=== PATIENT | female | born 1955 | race Caucasian/White ===

== ENCOUNTER 2017-02-23 20:12 | Observation (INO) | payer MEDICARE, OTHER ==
[2017-02-23] MEDS ORDERED: SODIUM CHLORIDE 0.9% 1000ML 1,000 ML IV ONE ×2 (20:30→22:00)
[2017-02-23 20:59] LABS: ALBUMIN 2.8 gm/dl (3.4-5.0); CALCIUM 7.9 mg/dl (8.5-10.1); POTASSIUM 3.3 mMol/L (3.5-5.1)
[2017-02-23 21:02] LABS: BASOPHILS % (AUTO) 1 % (0-3); EOSINOPHILS % (AUTO) 3 % (0-9); HEMATOCRIT 31 % (35-47); MEAN CORPUSCULAR VOLUME 95 fL (81-99); MONOCYTES % (AUTO) 6.7 % (0-12); NEUTROPHILS % (AUTO) 62.2 % (37-80)
[2017-02-23 23:04] VITALS: RESP 16
[2017-02-24 00:03] LABS: APPEARANCE,URINE Clear; BILIRUBIN,URINE NEGATIVE (NEGATIVE); COLOR,URINE Yellow; GLUCOSE, URINE (UA) NEGATIVE (NEGATIVE); KETONES,URINE NEGATIVE (NEGATIVE); LEUKOCYTE ESTERASE ,URINE NEGATIVE (NEGATIVE); NITRATE,URINE NEGATIVE (NEGATIVE); OCCULT BLOOD,URINE NEGATIVE (NEG-TRACE); UROBILINOGEN,URINE 0.2 (0.2-1.0 EU)
[2017-02-24 00:16] LABS: AMPHETAMINES NEGATIVE (NEGATIVE); METHADONE NEGATIVE (NEGATIVE); METHAMPHETAMINES NEGATIVE (NEGATIVE); OPIATES(OP13) NEGATIVE (NEGATIVE); OXYCODONE(OXY) POSITIVE (NEGATIVE); PROPOXYPHENE(PPX) NEGATIVE (NEGATIVE); RBC,URINE 0-1 (0-3AV/HPF); TRICYCLIC ANTIDEPRESSANTS NEGATIVE (NEGATIVE); WBC,URINE 0-1 (0-5AV/HPF)
[2017-02-24] MEDS ORDERED: APAP/HYDROCODONE 325/5 TAB PO ONE (05:43)
[2017-02-24 07:19] LABS: CALCIUM 8.1 mg/dl (8.5-10.1); POTASSIUM 4.1 mMol/L (3.5-5.1)
[2017-02-24 07:21] LABS: BASOPHILS % (AUTO) 1 % (0-3); EOSINOPHILS % (AUTO) 3 % (0-9); HEMATOCRIT 32 % (35-47); MEAN CORPUSCULAR HGB CONC 34.7 gm/dl (32.0-36.0); MEAN CORPUSCULAR VOLUME 95 fL (81-99); MONOCYTES % (AUTO) 8.4 % (0-12)
[2017-02-24] MEDS ORDERED: INFLUENZA VIRUS VACCINE 0.5 ML SUS IM ONE (10:46)
[2017-02-24 12:00] VITALS: BP 97/63; PULSE 71; TEMP 97.6; O2SAT 95
== END 2017-02-24 11:10 | disposition home or self-care (01) | DRG 897 ==
LOC: ED 20:12 → ACUTE CARE 21:57
PROVIDERS: ADMIT Family Medicine; ATTEND Family Medicine
DX: F10.188 Alcohol abuse with other alcohol-induced disorder (principal); E87.1 Hypo-osmolality and hyponatremia; R41.82 Altered mental status, unspecified; Y90.4 Blood alcohol level of 80-99 mg/100 ml; Z91.14 Patient's other noncompliance with medication regimen; E87.6 Hypokalemia
CPT/HCPCS: 36415; 80048; 80053; 80305; 80307; 81001; 84443; 85025; 90686; 93005; 96365; 99218; 99283; G0008

== ENCOUNTER 2017-04-15 18:05 | Emergency (ER) | payer MEDICARE, OTHER ==
[2017-04-15 18:38] VITALS: BP 153/94; PULSE 66; RESP 16; TEMP 98.2; O2SAT 98
[2017-04-15] MEDS ORDERED: KETOROLAC TROMETHAMINE 30 MG/ML SOL IM ONE (19:02)
[2017-04-15] MEDS ORDERED: KETOROLAC TROMETHAMINE 30 MG/ML SOL ONE (19:05)
== END 2017-04-15 20:05 | disposition home or self-care (01) | DRG 563 ==
LOC: ED 18:05
DX: S93.692A Other sprain of left foot, initial encounter (principal); W01.0XXA Fall on same level from slipping, tripping and stumbling without subsequent striking against object, initial encounter
CPT/HCPCS: 73630; 99283; J1885

== ENCOUNTER 2017-06-08 14:28 | Observation (INO) | payer MEDICARE, OTHER ==
[2017-06-08 15:01] VITALS: RESP 16
[2017-06-08 15:49] LABS: HEMATOCRIT 37 % (35-47)
[2017-06-08 16:03] LABS: MEAN CORPUSCULAR VOLUME 100 fL (81-99)
[2017-06-08 16:04] LABS: ANISOCYTOSIS SLIGHT AMT; BASOPHILS % (MANUAL) 0 % (0-3); EOSINOPHILS % (MANUAL) 0 % (0-9); LYMPHOCYTES % (MANUAL) 15 % (10-50); PLATELET MORPHOLOGY COMMENT ADEQUATE
[2017-06-08] MEDS ORDERED: ONDANSETRON 4 MG ODT BU ONE (16:24)
[2017-06-08] MEDS ORDERED: ONDANSETRON 4 MG ODT ONE (16:26)
[2017-06-08 17:07] LABS: APPEARANCE,URINE Clear; BILIRUBIN,URINE NEGATIVE (NEGATIVE); COLOR,URINE Yellow; GLUCOSE, URINE (UA) NEGATIVE (NEGATIVE); KETONES,URINE NEGATIVE (NEGATIVE); LEUKOCYTE ESTERASE ,URINE NEGATIVE (NEGATIVE); NITRATE,URINE NEGATIVE (NEGATIVE); OCCULT BLOOD,URINE NEGATIVE (NEG-TRACE); UROBILINOGEN,URINE 0.2 (0.2-1.0 EU)
[2017-06-08 17:17] LABS: RBC,URINE NEG (0-3AV/HPF); WBC,URINE NEG (0-5AV/HPF)
[2017-06-08] MEDS ORDERED: APAP/HYDROCODONE 325/5 TAB PO ONE (17:35)
[2017-06-08] MEDS ORDERED: ALPRAZOLAM 0.25 MG TAB PO ONE (17:36)
[2017-06-08] MEDS ORDERED: METOCLOPRAMIDE HYDROCHLORIDE 5 MG TAB PO PRN (17:40)
[2017-06-08] MEDS ORDERED: APAP/HYDROCODONE 325/5 TAB ONE (17:41)
[2017-06-08] MEDS ORDERED: ALPRAZOLAM 0.25 MG TAB ONE (17:44)
[2017-06-08 17:57] LABS: ALBUMIN 3.1 gm/dl (3.4-5.0); ALT 88 IU/L (14-63); CALCIUM 8.9 mg/dl (8.5-10.1); GLOM FILT RATE 74 mL/min (>60); POTASSIUM 3.9 mMol/L (3.5-5.1); SODIUM 133 mMol/L (136-145)
[2017-06-08] MEDS ORDERED: IBUPROFEN 400 MG TAB PO PRN (19:22)
[2017-06-08] MEDS ORDERED: NITROGLYCERIN 0.4 MG TAB SL PRN (19:22)
[2017-06-08] MEDS ORDERED: ALPRAZOLAM 0.25 MG TAB PO PRN (19:22)
[2017-06-08] MEDS ORDERED: APAP/HYDROCODONE 325/5 TAB PO PRN (19:22)
[2017-06-08] MEDS ORDERED: SENNOSIDES A AND B 8.6 MG TAB PO PRN (19:22)
[2017-06-08] MEDS ORDERED: ONDANSETRON HCL 4 MG/2 ML SOL IV PRN (19:25)
[2017-06-08] MEDS: SODIUM CHLORIDE/KCL 20MEQ 1,000 ML IV SCH (20:23)
[2017-06-08] MEDS ORDERED: GABAPENTIN 300 MG CAP PO SCH (21:00)
[2017-06-08] MEDS: NUTRITIONAL SUPPLEMENT PO SCH (21:05)
[2017-06-08] MEDS ORDERED: SODIUM CHLORIDE 0.9% 1000 ML SOL IV ONE (23:37)
[2017-06-08] MEDS ORDERED: SODIUM CHLORIDE 0.9% 1000ML 1,000 ML IV SCH (23:45)
[2017-06-08] MEDS ORDERED: SODIUM CHLORIDE 0.9% 1000ML 1,000 ML IV ONE (23:50)
[2017-06-09] MEDS ORDERED: LEVOTHYROXINE SODIUM 50 MCG TAB PO SCH (07:00)
[2017-06-09 07:08] LABS: BASOPHILS % (AUTO) 1 % (0-3); EOSINOPHILS % (AUTO) 2 % (0-9); HEMATOCRIT 34 % (35-47); MEAN CORPUSCULAR HGB CONC 34.5 gm/dl (32.0-36.0); MONOCYTES % (AUTO) 9.7 % (0-12); NEUTROPHILS % (AUTO) 66.1 % (37-80)
[2017-06-09] MEDS: SODIUM CHLORIDE/KCL 20MEQ 1,000 ML IV SCH (07:17)
[2017-06-09 07:19] LABS: CALCIUM 8.1 mg/dl (8.5-10.1); MAGNESIUM 1.6 mg/dl (1.8-2.4); MEAN CORPUSCULAR VOLUME 100 fL (81-99); POTASSIUM 4.1 mMol/L (3.5-5.1)
[2017-06-09 07:29] VITALS: BP 146/93; PULSE 68; TEMP 97.7; O2SAT 99
[2017-06-09 07:47] LABS: ANISOCYTOSIS SLIGHT
[2017-06-09] MEDS: NUTRITIONAL SUPPLEMENT PO SCH (08:53)
[2017-06-09] MEDS ORDERED: GABAPENTIN 300 MG CAP PO SCH ×2 (09:00→14:00)
[2017-06-09] MEDS ORDERED: FLUOXETINE HYDROCHLORIDE 10 MG CAP PO SCH (09:00)
[2017-06-09] MEDS ORDERED: METOPROLOL TARTRATE 50 MG TAB PO SCH (09:15)
[2017-06-09] MEDS ORDERED: LISINOPRIL 5 MG TAB PO SCH (09:15)
== END 2017-06-09 15:10 | disposition home or self-care (01) | DRG 897 ==
LOC: ED 14:28 → ACUTE CARE 18:56 → UNDOADMOB 18:56 → ACUTE CARE 19:25
PROVIDERS: ADMIT Emergency Medicine; ATTEND Emergency Medicine
DX: F10.20 Alcohol dependence, uncomplicated (principal); I95.9 Hypotension, unspecified; S09.8XXA Other specified injuries of head, initial encounter; E46 Unspecified protein-calorie malnutrition; K70.10 Alcoholic hepatitis without ascites; E88.09 Other disorders of plasma-protein metabolism, not elsewhere classified; E87.1 Hypo-osmolality and hyponatremia; E86.0 Dehydration; W01.198A Fall on same level from slipping, tripping and stumbling with subsequent striking against other object, initial encounter; D75.89 Other specified diseases of blood and blood-forming organs; D72.829 Elevated white blood cell count, unspecified; G89.29 Other chronic pain; M54.9 Dorsalgia, unspecified
CPT/HCPCS: 36415; 70450; 80048; 80053; 81001; 82150; 83735; 84484; 85007; 85025; 85027; 93005; 99285; J2405

== ENCOUNTER 2018-01-18 18:55 | Observation (INO) | payer MEDICARE, OTHER ==
[2018-01-18] MEDS ORDERED: ASPIRIN 81 MG CHEWABLE CTB PO STA (19:02)
[2018-01-18] MEDS ORDERED: ASPIRIN 81 MG CHEWABLE CTB ONE (19:03)
[2018-01-18 19:11] LABS: BASOPHILS % (AUTO) 1 % (0-3); EOSINOPHILS % (AUTO) 3 % (0-9); HEMATOCRIT 43 % (35-47); HEMOGLOBIN 13.6 gm/dl (12.0-15.5); LYMPHOCYTES % (AUTO) 25.8 % (10-50); MEAN CORPUSCULAR HEMOGLOBIN 31.6 pg (27.0-32.0); MEAN CORPUSCULAR HGB CONC 31.5 gm/dl (32.0-36.0); MONOCYTES % (AUTO) 9.2 % (0-12); NEUTROPHILS % (AUTO) 61.1 % (37-80)
[2018-01-18] MEDS ORDERED: NITROGLYCERIN 0.4 MG TAB SL ONE (19:11)
[2018-01-18] MEDS: NITROGLYCERIN 0.4 MG TAB SL PRN ×2 (19:12→19:31)
[2018-01-18 19:15] LABS: MEAN CORPUSCULAR VOLUME 100 fL (81-99)
[2018-01-18 19:23] LABS: INR 0.9 (0.86-1.12)
[2018-01-18 19:35] LABS: ALBUMIN 3.3 gm/dl (3.4-5.0); ALKALINE PHOSPHATASE 106 IU/L (46-116); ALT 33 IU/L (14-63); AST 26 IU/L (15-37); BILIRUBIN,TOTAL 0.3 mg/dl (0.2-1.0); BLOOD UREA NITROGEN 12 mg/dl (7-18); CALCIUM 8.5 mg/dl (8.5-10.1); CARBON DIOXIDE 22.2 mEq/L (21-32); CHLORIDE 103 mMol/L (98-107); CREATINE KINASE 33 U/L (26-192); CREATININE 0.76 mg/dl (0.60-1.00); GLOM FILT RATE 77 mL/min (>60); GLUCOSE 84 mg/dl (74-106); POTASSIUM 3.7 mMol/L (3.5-5.1); SODIUM 137 mMol/L (136-145); TROP I < 0.017 ng/ml (0.000-0.056)
[2018-01-18] MEDS: SODIUM CHLORIDE 0.9% FLUSH 10 ML SOL IV PRN (21:00)
[2018-01-18] MEDS ORDERED: SENNOSIDES A AND B 8.6 MG TAB PO PRN (22:12)
[2018-01-18] MEDS ORDERED: NITROGLYCERIN 0.4 MG TAB SL PRN (22:12)
[2018-01-18] MEDS ORDERED: IBUPROFEN 400 MG TAB PO PRN (22:12)
[2018-01-18 22:47] VITALS: RESP 16
[2018-01-18] MEDS: APAP/HYDROCODONE 325/5 TAB PO PRN (23:09)
[2018-01-19] MEDS ORDERED: LEVOTHYROXINE SODIUM 50 MCG TAB PO SCH ×2 (07:00→09:00)
[2018-01-19 07:33] LABS: BLOOD UREA NITROGEN 9 mg/dl (7-18); CALCIUM 9.1 mg/dl (8.5-10.1); CARBON DIOXIDE 22.2 mEq/L (21-32); CHLORIDE 106 mMol/L (98-107); CREATININE 0.64 mg/dl (0.60-1.00); GLOM FILT RATE 93 mL/min (>60); GLUCOSE 93 mg/dl (74-106); POTASSIUM 3.8 mMol/L (3.5-5.1); SODIUM 138 mMol/L (136-145); TROP I < 0.017 ng/ml (0.000-0.056)
[2018-01-19 08:04] VITALS: BP 110/70; PULSE 64; TEMP 98.5; O2SAT 98
[2018-01-19] MEDS ORDERED: SODIUM CHLORIDE 0.9% 500 ML 500 ML IV ONE (08:47)
[2018-01-19] MEDS: SODIUM CHLORIDE 0.9% FLUSH 10 ML SOL IV PRN (08:55)
[2018-01-19] MEDS ORDERED: GABAPENTIN 300 MG CAP PO SCH ×2 (09:00→21:00)
[2018-01-19] MEDS ORDERED: LISINOPRIL 20 MG TAB PO SCH (09:00)
[2018-01-19] MEDS ORDERED: FUROSEMIDE 20 MG TAB PO SCH (09:00)
[2018-01-19] MEDS ORDERED: FLUOXETINE HYDROCHLORIDE 10 MG CAP PO SCH (09:00)
[2018-01-19] MEDS ORDERED: METOPROLOL TARTRATE 25 MG TAB PO SCH (09:00)
[2018-01-19] MEDS ORDERED: PANTOPRAZOLE SODIUM 40 MG ECT PO SCH (09:00)
[2018-01-19] MEDS ORDERED: ALPRAZOLAM 0.25 MG TAB PO SCH ×2 (09:00→21:00)
[2018-01-19] MEDS: APAP/HYDROCODONE 325/5 TAB PO PRN (09:38)
[2018-01-19] MEDS ORDERED: METOPROLOL TARTRATE 50 MG TAB PO SCH (09:45)
== END 2018-01-19 13:10 | disposition home or self-care (01) | DRG 313 ==
LOC: ED 18:55 → ACUTE CARE 21:53 → UNDOADMOB 21:53 → ACUTE CARE 22:00
PROVIDERS: ADMIT Family Medicine; ATTEND Family Medicine
DX: R07.9 Chest pain, unspecified (principal); G89.29 Other chronic pain; J44.9 Chronic obstructive pulmonary disease, unspecified; R10.13 Epigastric pain; M54.9 Dorsalgia, unspecified; Z79.899 Other long term (current) drug therapy; Z72.0 Tobacco use; Z86.711 Personal history of pulmonary embolism; R10.11 Right upper quadrant pain; K21.9 Gastro-esophageal reflux disease without esophagitis
CPT/HCPCS: 36415; 71045; 71275; 80048; 80053; 82550; 84484; 85025; 85378; 85610; 85730; 93005; 93012; 99218; 99285; Q9967; A9270-GY

== ENCOUNTER 2018-03-12 08:45 | Observation (INO) | payer MEDICARE, OTHER ==
[2018-03-12 08:57] LABS: BASOPHILS % (AUTO) 1 % (0-3); EOSINOPHILS % (AUTO) 2 % (0-9); HEMATOCRIT 43 % (35-47); HEMOGLOBIN 14.3 gm/dl (12.0-15.5); LYMPHOCYTES % (AUTO) 17.6 % (10-50); MEAN CORPUSCULAR HEMOGLOBIN 31.9 pg (27.0-32.0); MEAN CORPUSCULAR HGB CONC 33.5 gm/dl (32.0-36.0); MEAN CORPUSCULAR VOLUME 95 fL (81-99); MONOCYTES % (AUTO) 9.6 % (0-12); NEUTROPHILS % (AUTO) 70.2 % (37-80)
[2018-03-12 08:59] LABS: LACTIC ACID 1.2 mMol/L (0.0-2.0)
[2018-03-12] MEDS: SODIUM CHLORIDE 0.9% FLUSH 10 ML SOL IV PRN (09:00)
[2018-03-12 09:16] LABS: ALBUMIN 2.9 gm/dl (3.4-5.0); ALKALINE PHOSPHATASE 122 IU/L (46-116); ALT 316 IU/L (14-63); AST 154 IU/L (15-37); BILIRUBIN,TOTAL 0.7 mg/dl (0.2-1.0); BLOOD UREA NITROGEN 18 mg/dl (7-18); CALCIUM 8.7 mg/dl (8.5-10.1); CARBON DIOXIDE 17.9 mEq/L (21-32); CHLORIDE 105 mMol/L (98-107); CREATININE 1.09 mg/dl (0.60-1.00); GLOM FILT RATE 51 mL/min (>60); GLUCOSE 126 mg/dl (74-106); SODIUM 136 mMol/L (136-145); TOTAL PROTEIN 7.1 gm/dl (6.4-8.2)
[2018-03-12 09:17] LABS: ALCOHOL < 0.003 gm/dl (0.000-0.08); POTASSIUM 2.3 mMol/L (3.5-5.1)
[2018-03-12] MEDS ORDERED: LIDOCAINE HCL 1% MPF 30 SOL ONE (09:20)
[2018-03-12] MEDS ORDERED: POTASSIUM CHLORIDE 2 MEQ/ML SOL IV SCH (09:30)
[2018-03-12] MEDS ORDERED: POTASSIUM CHLORIDE 2 MEQ/ML SOL IV ONE (09:39)
[2018-03-12] MEDS ORDERED: SENNOSIDES A AND B 8.6 MG TAB PO PRN (10:08)
[2018-03-12] MEDS ORDERED: NITROGLYCERIN 0.4 MG TAB SL PRN (10:08)
[2018-03-12 10:28] LABS: MAGNESIUM 2.4 mg/dl (1.8-2.4); THYROID STIMULATING HORMONE 0.044 uIU/ml (0.358-3.740)
[2018-03-12] MEDS: SODIUM CHLORIDE 0.9% 1000ML 1,000 ML IV SCH ×2 (11:00→19:11)
[2018-03-12] MEDS ORDERED: IBUPROFEN 400 MG TAB PO PRN (12:13)
[2018-03-12] MEDS: APAP/HYDROCODONE 325/5 TAB PO PRN (12:54)
[2018-03-12] MEDS: PANTOPRAZOLE SODIUM 40 MG ECT PO SCH (13:09)
[2018-03-12 17:20] LABS: APPEARANCE,URINE Slightly Cloudy; BILIRUBIN,URINE NEGATIVE (NEGATIVE); COLOR,URINE Yellow; GLUCOSE, URINE (UA) NEGATIVE (NEGATIVE); KETONES,URINE NEGATIVE (NEGATIVE); LEUKOCYTE ESTERASE ,URINE 1+ (NEGATIVE); NITRATE,URINE NEGATIVE (NEGATIVE); OCCULT BLOOD,URINE TRACE INTACT (NEG-TRACE)
[2018-03-12 18:23] LABS: BACTERIA 4+ (< 1+); CRYSTALS NEGATIVE (0-3 AVE/HPF); EPITHELIAL CELLS 0-4 + CLUMPS (SQUAMOUS); RBC,URINE 0-1 (0-3AV/HPF)
[2018-03-12] MEDS ORDERED: CEFTRIAXONE 1 GM PDS 1 GM in SODIUM CHLORIDE 0.9% 50 ML 50 ML IV ONE (19:34)
[2018-03-12] MEDS ORDERED: SODIUM CHLORIDE 0.9% 50 ML 50 ML IV ONE (20:00)
[2018-03-12] MEDS ORDERED: CEFTRIAXONE 1 GM PDS ONE (20:00)
[2018-03-12] MEDS: GABAPENTIN 300 MG CAP PO SCH (20:24)
[2018-03-12] MEDS ORDERED: SODIUM CHLORIDE 0.9% 1000ML 1,000 ML IV SCH (22:15)
[2018-03-12] MEDS: POTASSIUM CHLORIDE 10 MEQ TER PO SCH (23:19)
[2018-03-13] MEDS: SODIUM CHLORIDE 0.9% 1000ML 1,000 ML IV SCH ×3 (01:34→05:38)
[2018-03-13] MEDS: POTASSIUM CHLORIDE 10 MEQ TER PO SCH ×2 (02:06→04:51)
[2018-03-13] MEDS: HYDROCORTISONE SODIUM SUCCIN 100 MG PDS IV SCH ×3 (02:06→18:23)
[2018-03-13] MEDS: PANTOPRAZOLE SODIUM 40 MG ECT PO SCH (06:15)
[2018-03-13] MEDS: BACITRACIN 500 U/GM OIN TOP SCH ×3 (06:16→20:07)
[2018-03-13] MEDS ORDERED: LEVOTHYROXINE SODIUM 50 MCG TAB PO SCH ×2 (07:00→09:45)
[2018-03-13 07:18] LABS: MEAN CORPUSCULAR HEMOGLOBIN 32.8 pg (27.0-32.0); MEAN CORPUSCULAR HGB CONC 33.8 gm/dl (32.0-36.0)
[2018-03-13 07:37] LABS: ALBUMIN 2.3 gm/dl (3.4-5.0); BILIRUBIN,TOTAL 0.3 mg/dl (0.2-1.0); CALCIUM 7.6 mg/dl (8.5-10.1); CARBON DIOXIDE 12.4 mEq/L (21-32); CREATININE 0.77 mg/dl (0.60-1.00); POTASSIUM 4.2 mMol/L (3.5-5.1); TOTAL PROTEIN 5.7 gm/dl (6.4-8.2)
[2018-03-13] MEDS: FLUOXETINE HYDROCHLORIDE 10 MG CAP PO SCH (08:30)
[2018-03-13] MEDS: GABAPENTIN 300 MG CAP PO SCH ×2 (08:31→20:07)
[2018-03-13] MEDS ORDERED: CEFTRIAXONE 1 GM PDS ONE (10:00)
[2018-03-13] MEDS ORDERED: SODIUM CHLORIDE 0.9% 50 ML 50 ML IV ONE (10:02)
[2018-03-13] MEDS: SPIRONOLACTONE 25 MG TAB PO SCH (10:03)
[2018-03-13] MEDS: CEFTRIAXONE 1 GM PDS 1 GM in SODIUM CHLORIDE 0.9% 50 ML 50 ML IV SCH (10:16)
[2018-03-13] MEDS: APAP/HYDROCODONE 325/5 TAB PO PRN (15:55)
[2018-03-13] MEDS: SODIUM CHLORIDE 0.9% FLUSH 10 ML SOL IV PRN (18:24)
[2018-03-13] MEDS ORDERED: ALBUMIN HUMAN 25 GM/100 ML SOL IV ONE (19:05)
[2018-03-13] MEDS ORDERED: ALBUMIN HUMAN 100 ML IV ONE (19:21)
[2018-03-14] MEDS: APAP/HYDROCODONE 325/5 TAB PO PRN (00:14)
[2018-03-14] MEDS: SODIUM CHLORIDE 0.9% FLUSH 10 ML SOL IV PRN ×2 (00:19→09:11)
[2018-03-14] MEDS: HYDROCORTISONE SODIUM SUCCIN 100 MG PDS IV SCH ×2 (00:30→09:15)
[2018-03-14] MEDS: PANTOPRAZOLE SODIUM 40 MG ECT PO SCH (06:47)
[2018-03-14] MEDS ORDERED: LEVOTHYROXINE SODIUM 50 MCG TAB PO SCH (07:00)
[2018-03-14] MEDS ORDERED: SPIRONOLACTONE 25 MG TAB PO SCH (09:00)
[2018-03-14] MEDS ORDERED: SODIUM CHLORIDE 0.9% 50 ML 50 ML IV ONE (09:00)
[2018-03-14] MEDS ORDERED: CEFTRIAXONE 1 GM PDS ONE (09:00)
[2018-03-14] MEDS: SPIRONOLACTONE 25 MG TAB PO SCH (09:09)
[2018-03-14] MEDS: BACITRACIN 500 U/GM OIN TOP SCH (09:09)
[2018-03-14] MEDS: LIDOCAINE 5% PATCH 1 PATCH TDM TOP SCH ×2 (09:09→10:07)
[2018-03-14] MEDS: FLUOXETINE HYDROCHLORIDE 10 MG CAP PO SCH (09:10)
[2018-03-14] MEDS: GABAPENTIN 300 MG CAP PO SCH (09:10)
[2018-03-14] MEDS: CEFTRIAXONE 1 GM PDS 1 GM in SODIUM CHLORIDE 0.9% 50 ML 50 ML IV SCH (09:11)
[2018-03-14] MEDS ORDERED: ASPIRIN 81 MG CHEWABLE CTB PO ONE (10:54)
[2018-03-14] MEDS ORDERED: SODIUM CHLORIDE 0.9% 1000ML 1,000 ML IV SCH ×2 (11:00→11:08)
[2018-03-14 11:05] LABS: BASOPHILS % (AUTO) 0 % (0-3); EOSINOPHILS % (AUTO) 0 % (0-9); HEMATOCRIT 33 % (35-47); LYMPHOCYTES % (AUTO) 6.63 % (10-50); MEAN CORPUSCULAR HEMOGLOBIN 32.3 pg (27.0-32.0); MEAN CORPUSCULAR HGB CONC 33.2 gm/dl (32.0-36.0); MEAN CORPUSCULAR VOLUME 97 fL (81-99); MONOCYTES % (AUTO) 5.3 % (0-12); NEUTROPHILS % (AUTO) 87.6 % (37-80)
[2018-03-14 11:15] LABS: ALBUMIN 2.6 gm/dl (3.4-5.0); ALKALINE PHOSPHATASE 105 IU/L (46-116); ALT 154 IU/L (14-63); AST 51 IU/L (15-37); BILIRUBIN,TOTAL 0.3 mg/dl (0.2-1.0); BLOOD UREA NITROGEN 12 mg/dl (7-18); CALCIUM 8.1 mg/dl (8.5-10.1); CARBON DIOXIDE 13.8 mEq/L (21-32); CHLORIDE 112 mMol/L (98-107); CREATININE 0.81 mg/dl (0.60-1.00); GLOM FILT RATE 71 mL/min (>60); GLUCOSE 125 mg/dl (74-106); POTASSIUM 3.1 mMol/L (3.5-5.1); SODIUM 138 mMol/L (136-145); TOTAL PROTEIN 5.9 gm/dl (6.4-8.2); TROP I < 0.017 ng/ml (0.000-0.056)
[2018-03-14 11:19] VITALS: RESP 24
[2018-03-14] MEDS ORDERED: POTASSIUM CHLORIDE 10 MEQ TER PO ONE (12:30)
[2018-03-14 16:46] VITALS: BP 138/81; PULSE 70; TEMP 98.1; O2SAT 98
== END 2018-03-14 18:45 | disposition home or self-care (01) | DRG 641 ==
LOC: ED 08:45 → UNDOADMOB 09:48 → ACUTE CARE 09:48
PROVIDERS: ADMIT Emergency Medicine; ATTEND Emergency Medicine
DX: E87.6 Hypokalemia (principal); I95.9 Hypotension, unspecified; R79.89 Other specified abnormal findings of blood chemistry; Z72.0 Tobacco use; F10.10 Alcohol abuse, uncomplicated; R07.9 Chest pain, unspecified; R79.1 Abnormal coagulation profile
CPT/HCPCS: 36415; 71045; 80053; 80307; 81001; 83735; 83880; 84132; 84443; 84484; 85025; 85027; 85378; 87077; 87088; 87186; 93005; 93012; 93306; 99070; 99219; 99285; J0696; J1720; J3480; P9047; A9270-GY; J2001

== ENCOUNTER 2018-03-19 09:57 | Emergency (ER) | payer MEDICARE, OTHER ==
[2018-03-19 10:06] VITALS: RESP 20; TEMP 97.9
[2018-03-19 10:49] LABS: BASOPHILS % (AUTO) 0 % (0-3); EOSINOPHILS % (AUTO) 4 % (0-9); HEMATOCRIT 37 % (35-47); HEMOGLOBIN 12.1 gm/dl (12.0-15.5); LYMPHOCYTES % (AUTO) 7.15 % (10-50); MEAN CORPUSCULAR HEMOGLOBIN 32.3 pg (27.0-32.0); MEAN CORPUSCULAR HGB CONC 33.1 gm/dl (32.0-36.0); MEAN CORPUSCULAR VOLUME 97 fL (81-99); MONOCYTES % (AUTO) 7.4 % (0-12); NEUTROPHILS % (AUTO) 80.9 % (37-80)
[2018-03-19 10:51] LABS: APPEARANCE,URINE Clear; BILIRUBIN,URINE NEGATIVE (NEGATIVE); COLOR,URINE Yellow; GLUCOSE, URINE (UA) NEGATIVE (NEGATIVE); KETONES,URINE NEGATIVE (NEGATIVE); LEUKOCYTE ESTERASE ,URINE NEGATIVE (NEGATIVE); NITRATE,URINE NEGATIVE (NEGATIVE); OCCULT BLOOD,URINE NEGATIVE (NEG-TRACE); UROBILINOGEN,URINE 0.2 (0.2-1.0 EU)
[2018-03-19 11:00] LABS: BACTERIA RARE (< 1+); CRYSTALS NEGATIVE (0-3 AVE/HPF); EPITHELIAL CELLS 0-1 (SQUAMOUS); RBC,URINE NEGATIVE (0-3AV/HPF); WBC,URINE NEGATIVE (0-5AV/HPF)
[2018-03-19 11:12] LABS: ALBUMIN 2.6 gm/dl (3.4-5.0); ALKALINE PHOSPHATASE 86 IU/L (46-116); ALT 65 IU/L (14-63); AST 35 IU/L (15-37); BILIRUBIN,TOTAL 0.4 mg/dl (0.2-1.0); BLOOD UREA NITROGEN 7 mg/dl (7-18); CALCIUM 8.2 mg/dl (8.5-10.1); CARBON DIOXIDE 14.6 mEq/L (21-32); CHLORIDE 108 mMol/L (98-107); CREATININE 0.78 mg/dl (0.60-1.00); GLOM FILT RATE 74 mL/min (>60); GLUCOSE 90 mg/dl (74-106); POTASSIUM 4.2 mMol/L (3.5-5.1); SODIUM 135 mMol/L (136-145); THYROID STIMULATING HORMONE 0.092 uIU/ml (0.358-3.740); TOTAL PROTEIN 6.6 gm/dl (6.4-8.2); TROP I < 0.017 ng/ml (0.000-0.056)
[2018-03-19 12:49] VITALS: BP 112/70; PULSE 68; O2SAT 100
== END 2018-03-19 12:15 | disposition home or self-care (01) | DRG 316 ==
LOC: ED 09:57
DX: I95.9 Hypotension, unspecified (principal); I50.9 Heart failure, unspecified; R07.1 Chest pain on breathing; Z72.0 Tobacco use; R06.02 Shortness of breath
CPT/HCPCS: 80053; 81001; 84443; 84484; 85025; 99283

== ENCOUNTER 2018-06-04 13:49 | Inpatient (IN) | payer MEDICARE, OTHER ==
[2018-06-04] MEDS ORDERED: ONDANSETRON HCL 4 MG/2 ML SOL IV ONE (14:21)
[2018-06-04] MEDS ORDERED: MORPHINE SULFATE 10 MG/ML SOL IV ONE ×2 (14:21→16:13)
[2018-06-04] MEDS ORDERED: SODIUM CHLORIDE 0.9% 1000ML 1,000 ML IV SCH ×2 (14:30→17:00)
[2018-06-04] MEDS ORDERED: MORPHINE SULFATE 10 MG/ML SOL ONE ×2 (14:34→16:30)
[2018-06-04] MEDS ORDERED: ONDANSETRON HCL 4 MG/2 ML SOL ONE (14:35)
[2018-06-04 14:38] LABS: BASOPHILS % (AUTO) 0 % (0-3); EOSINOPHILS % (AUTO) 0 % (0-9); HEMATOCRIT 48 % (35-47); MEAN CORPUSCULAR HGB CONC 31.4 gm/dl (32.0-36.0); MONOCYTES % (AUTO) 7.3 % (0-12); NEUTROPHILS % (AUTO) 82.9 % (37-80)
[2018-06-04 14:43] LABS: MEAN CORPUSCULAR VOLUME 102 fL (81-99)
[2018-06-04 14:53] LABS: ALBUMIN 3.1 gm/dl (3.4-5.0); BILIRUBIN,TOTAL 0.3 mg/dl (0.2-1.0); CALCIUM 8.8 mg/dl (8.5-10.1); CREATININE 0.52 mg/dl (0.60-1.00); POTASSIUM 4.2 mMol/L (3.5-5.1); TOTAL PROTEIN 6.9 gm/dl (6.4-8.2)
[2018-06-04 15:19] LABS: APPEARANCE,URINE Slightly Cloudy; BILIRUBIN,URINE NEGATIVE (NEGATIVE); COLOR,URINE Yellow; GLUCOSE, URINE (UA) NEGATIVE (NEGATIVE); KETONES,URINE TRACE (NEGATIVE); LEUKOCYTE ESTERASE ,URINE TRACE (NEGATIVE); NITRATE,URINE NEGATIVE (NEGATIVE); OCCULT BLOOD,URINE NEGATIVE (NEG-TRACE); UROBILINOGEN,URINE 0.2 (0.2-1.0 EU)
[2018-06-04 15:30] LABS: BACTERIA 1+ (< 1+); CRYSTALS 1+ AMORPH PHOSPHATES (0-3 AVE/HPF); RBC,URINE NEG (0-3AV/HPF)
[2018-06-04] MEDS: SODIUM CHLORIDE 0.9% 1000ML 1,000 ML IV SCH ×2 (16:14→23:07)
[2018-06-04] MEDS ORDERED: SENNOSIDES A AND B 8.6 MG TAB PO PRN (16:55)
[2018-06-04] MEDS ORDERED: HYDROMORPHONE HCL 2 MG/ML SOL IV PRN (16:56)
[2018-06-04] MEDS ORDERED: LORAZEPAM 0.5 MG TAB PO PRN (19:04)
[2018-06-04] MEDS ORDERED: LORAZEPAM 2 MG/ML SOL IV PRN (19:04)
[2018-06-04] MEDS: ALPRAZOLAM 0.25 MG TAB PO SCH (20:20)
[2018-06-04] MEDS: ONDANSETRON HCL 4 MG/2 ML SOL IV PRN (20:21)
[2018-06-04] MEDS: APAP/HYDROCODONE 325/5 TAB PO PRN (20:21)
[2018-06-05] MEDS: ONDANSETRON HCL 4 MG/2 ML SOL IV PRN ×3 (03:25→17:26)
[2018-06-05] MEDS: APAP/HYDROCODONE 325/5 TAB PO PRN ×4 (04:12→21:45)
[2018-06-05] MEDS: SODIUM CHLORIDE 0.9% 1000ML 1,000 ML IV SCH ×3 (05:53→16:51)
[2018-06-05] MEDS: LEVOTHYROXINE SODIUM 50 MCG TAB PO SCH (06:22)
[2018-06-05] MEDS: ALPRAZOLAM 0.25 MG TAB PO SCH ×3 (06:23→20:14)
[2018-06-05] MEDS ORDERED: OMEPRAZOLE 20 MG CAPSULE PO SCH (07:00)
[2018-06-05 07:27] LABS: CALCIUM 8.3 mg/dl (8.5-10.1); CREATININE 0.49 mg/dl (0.60-1.00); POTASSIUM 3.7 mMol/L (3.5-5.1)
[2018-06-05 07:47] LABS: BASOPHILS % (AUTO) 1 % (0-3); EOSINOPHILS % (AUTO) 2 % (0-9); HEMATOCRIT 42 % (35-47); HEMOGLOBIN 12.8 gm/dl (12.0-15.5); LYMPHOCYTES % (AUTO) 16.84 % (10-50); MEAN CORPUSCULAR HEMOGLOBIN 31.5 pg (27.0-32.0); MEAN CORPUSCULAR HGB CONC 30.3 gm/dl (32.0-36.0); MONOCYTES % (AUTO) 13.7 % (0-12); NEUTROPHILS % (AUTO) 66.1 % (37-80)
[2018-06-05 07:50] LABS: MEAN CORPUSCULAR VOLUME 104 fL (81-99)
[2018-06-05] MEDS ORDERED: LEVOTHYROXINE SODIUM 50 MCG TAB PO SCH (09:00)
[2018-06-05] MEDS ORDERED: HYDROMORPHONE 1 MG/ML SYRINGE IV PRN (09:30)
[2018-06-05] MEDS: POLYETHYLENE GLYCOL 17 GM/1 TBS PDS PO SCH (09:59)
[2018-06-05] MEDS: PANTOPRAZOLE SODIUM 40 MG ECT PO SCH (09:59)
[2018-06-05] MEDS: SPIRONOLACTONE 25 MG TAB PO SCH (09:59)
[2018-06-05] MEDS: FLUOXETINE HYDROCHLORIDE 10 MG CAP PO SCH (09:59)
[2018-06-06] MEDS: ONDANSETRON HCL 4 MG/2 ML SOL IV PRN ×2 (02:50→16:37)
[2018-06-06] MEDS: LEVOTHYROXINE SODIUM 50 MCG TAB PO SCH (06:15)
[2018-06-06] MEDS: ALPRAZOLAM 0.25 MG TAB PO SCH ×3 (06:15→20:43)
[2018-06-06] MEDS: APAP/HYDROCODONE 325/5 TAB PO PRN ×3 (06:15→18:35)
[2018-06-06] MEDS: SODIUM CHLORIDE 0.9% 1000ML 1,000 ML IV SCH (06:17)
[2018-06-06 07:49] LABS: CALCIUM 8.2 mg/dl (8.5-10.1); CARBON DIOXIDE 22.5 mEq/L (21-32); CREATININE 0.52 mg/dl (0.60-1.00); POTASSIUM 3.7 mMol/L (3.5-5.1)
[2018-06-06] MEDS: POLYETHYLENE GLYCOL 17 GM/1 TBS PDS PO SCH (09:26)
[2018-06-06] MEDS: PANTOPRAZOLE SODIUM 40 MG ECT PO SCH (09:27)
[2018-06-06] MEDS: FLUOXETINE HYDROCHLORIDE 10 MG CAP PO SCH (09:27)
[2018-06-06] MEDS: SPIRONOLACTONE 25 MG TAB PO SCH (09:27)
[2018-06-06] MEDS: SODIUM CHLORIDE 0.9% FLUSH 10 ML SOL IV SCH ×2 (16:38→23:15)
[2018-06-06] MEDS: NITROFURANTOIN 100 MG CAP PO SCH (20:42)
[2018-06-07] MEDS: APAP/HYDROCODONE 325/5 TAB PO PRN ×3 (01:01→12:48)
[2018-06-07] MEDS: LEVOTHYROXINE SODIUM 50 MCG TAB PO SCH (07:00)
[2018-06-07] MEDS: ALPRAZOLAM 0.25 MG TAB PO SCH ×2 (07:01→12:50)
[2018-06-07] MEDS: SPIRONOLACTONE 25 MG TAB PO SCH (08:29)
[2018-06-07] MEDS: POLYETHYLENE GLYCOL 17 GM/1 TBS PDS PO SCH (08:29)
[2018-06-07] MEDS: PANTOPRAZOLE SODIUM 40 MG ECT PO SCH (08:30)
[2018-06-07] MEDS: FLUOXETINE HYDROCHLORIDE 10 MG CAP PO SCH (08:30)
[2018-06-07] MEDS: NITROFURANTOIN 100 MG CAP PO SCH (08:30)
[2018-06-07] MEDS: SODIUM CHLORIDE 0.9% FLUSH 10 ML SOL IV SCH (08:31)
[2018-06-07 10:37] VITALS: BP 110/76; PULSE 76; RESP 14; TEMP 98; O2SAT 95
== END 2018-06-07 14:10 | disposition home or self-care (01) | DRG 594 ==
LOC: ED 13:49 → UNDOADMIN 16:47 → ACUTE CARE 16:47
PROVIDERS: ADMIT Family Medicine; ATTEND Family Medicine
DX: K85.20 Alcohol induced acute pancreatitis without necrosis or infection (principal); L97.312 Non-pressure chronic ulcer of right ankle with fat layer exposed; I10 Essential (primary) hypertension; Z72.89 Other problems related to lifestyle; R11.2 Nausea with vomiting, unspecified; R10.9 Unspecified abdominal pain
CPT/HCPCS: 36415; 74019; 74177; 80048; 80053; 81001; 82150; 85025; 87077; 87088; 87186; 93926; 94762; 96365; 96366; 96374; 96375; 99222; 99232; 99285; J2270; J2405; Q9967; A6232; A9270-GY

== ENCOUNTER 2018-09-06 17:44 | Emergency (ER) | payer MEDICARE, OTHER ==
[2018-09-06 18:46] LABS: HEMATOCRIT 38 % (35-47); HEMOGLOBIN 11.9 gm/dl (12.0-15.5); MEAN CORPUSCULAR HEMOGLOBIN 29.6 pg (27.0-32.0); MEAN CORPUSCULAR HGB CONC 31.6 gm/dl (32.0-36.0); MEAN CORPUSCULAR VOLUME 94 fL (81-99)
[2018-09-06 18:56] LABS: ALBUMIN 3.2 gm/dl (3.4-5.0); ALKALINE PHOSPHATASE 91 IU/L (46-116); ALT 21 IU/L (14-63); AST 20 IU/L (15-37); BILIRUBIN,TOTAL 0.4 mg/dl (0.2-1.0); BLOOD UREA NITROGEN 9 mg/dl (7-18); CALCIUM 8.6 mg/dl (8.5-10.1); CARBON DIOXIDE 24.6 mEq/L (21-32); CHLORIDE 99 mMol/L (98-107); CREATININE 0.68 mg/dl (0.60-1.00); GLUCOSE 80 mg/dl (74-106); POTASSIUM 4.4 mMol/L (3.5-5.1); SODIUM 133 mMol/L (136-145)
[2018-09-06 19:01] LABS: ALCOHOL < 0.003 gm/dl (0.000-0.08)
[2018-09-06 19:02] LABS: BAND NEUTROPHILS % (MANUAL) 3 %; BASOPHILS % (MANUAL) 0 % (0-3); EOSINOPHILS % (MANUAL) 1 % (0-9); LYMPHOCYTES % (MANUAL) 32 % (10-50); MONOCYTES % (MANUAL) 4 % (0-12); NEUTROPHILS % (MANUAL) 60 % (37-80); NORMAL RBCS PRESENT
[2018-09-06] MEDS ORDERED: ONDANSETRON 4 MG ODT BU ONE (19:34)
[2018-09-06] MEDS ORDERED: ONDANSETRON 4 MG ODT ONE (19:35)
[2018-09-06 20:03] VITALS: PULSE 82; RESP 16; TEMP 96.6; O2SAT 97
[2018-09-06 20:42] VITALS: BP 110/71
== END 2018-09-06 20:53 | disposition home or self-care (01) | DRG 948 ==
LOC: ED 17:44
DX: R53.83 Other fatigue (principal); M54.9 Dorsalgia, unspecified; R63.0 Anorexia
CPT/HCPCS: 36415; 80053; 80307; 85007; 85027; 99282; A9270-GY

== ENCOUNTER 2019-02-08 16:48 | Emergency (ER) | payer OTHER ==
[2019-02-08 17:39] VITALS: TEMP 97.2
[2019-02-08 18:02] LABS: BASOPHILS % (AUTO) 1 % (0-3); EOSINOPHILS % (AUTO) 1 % (0-9); HEMATOCRIT 37 % (35-47); HEMOGLOBIN 11.7 gm/dl (12.0-15.5); LYMPHOCYTES % (AUTO) 13.6 % (10-50); MEAN CORPUSCULAR HEMOGLOBIN 30.1 pg (27.0-32.0); MEAN CORPUSCULAR HGB CONC 31.7 gm/dl (32.0-36.0); MEAN CORPUSCULAR VOLUME 95 fL (81-99); MONOCYTES % (AUTO) 6.4 % (0-12); NEUTROPHILS % (AUTO) 78.1 % (37-80)
[2019-02-08] MEDS ORDERED: APAP/HYDROCODONE 1 EACH TABLET ONE (18:19)
[2019-02-08 18:21] LABS: ALBUMIN 3.7 gm/dl (3.4-5.0); ALKALINE PHOSPHATASE 99 IU/L (46-116); ALT 18 IU/L (14-63); AST 18 IU/L (15-37); BILIRUBIN,TOTAL 0.1 mg/dl (0.2-1.0); BLOOD UREA NITROGEN 10 mg/dl (7-18); CARBON DIOXIDE 26.2 mEq/L (21-32); CHLORIDE 99 mMol/L (98-107); GLUCOSE 92 mg/dl (74-106); POTASSIUM 4.1 mMol/L (3.5-5.1); SODIUM 136 mMol/L (136-145); TOTAL PROTEIN 7.5 gm/dl (6.4-8.2); TROP I < 0.017 ng/ml (0.000-0.056)
[2019-02-08] MEDS ORDERED: APAP/HYDROCODONE 1 EACH TABLET PO ONE (18:21)
[2019-02-08] MEDS ORDERED: METOCLOPRAMIDE HYDROCHLORIDE 5 MG/ML SOL IV ONE (18:30)
[2019-02-08] MEDS ORDERED: LORAZEPAM 2 MG/ML SOL IV ONE (18:30)
[2019-02-08] MEDS ORDERED: METOCLOPRAMIDE HYDROCHLORIDE 5 MG/ML SOL ONE (18:53)
[2019-02-08] MEDS ORDERED: LORAZEPAM 2 MG/ML SOL ONE (18:54)
[2019-02-08 20:01] VITALS: BP 112/79; PULSE 60; RESP 18; O2SAT 96
== END 2019-02-08 19:50 | disposition home or self-care (01) | DRG 948 ==
LOC: ED 16:48
DX: R60.0 Localized edema (principal); R51 Headache; R06.02 Shortness of breath
CPT/HCPCS: 36415; 70450; 71045; 80053; 83880; 84484; 85025; 93005; 96374; 96375; 99283; 99285; J2060; J2765; A9270-GY